=== PATIENT | female | born 1980 | race Two or more races ===

== ENCOUNTER 2017-10-30 02:54 | Observation (INO) | payer MEDICAID ==
[~2017-10-30] VITALS: Ht 160 cm; Wt 78.0 kg
[2017-10-30] MEDS ORDERED: FERR325T6 PO (03:32)
[2017-10-30] MEDS ORDERED: PREN1TAB45 PO (03:32)
== END 2017-10-30 04:15 | disposition home or self-care (01) ==
LOC: L&D 02:54
PROVIDERS: ADMIT Obstetrics & Gynecology; ATTEND Obstetrics & Gynecology
DX: O36.8130 Decreased fetal movements, third trimester, not applicable or unspecified (principal); Z3A.37 37 weeks gestation of pregnancy
CPT/HCPCS: 99281; G0378

== ENCOUNTER 2017-11-14 20:06 | Observation (INO) | payer MEDICAID ==
[~2017-11-14 20:06] MED LIST: FERR325T6 PO; PREN1TAB45 PO
== END 2017-11-14 23:00 | disposition home or self-care (01) ==
LOC: L&D 20:06
PROVIDERS: ADMIT Obstetrics & Gynecology; ATTEND Obstetrics & Gynecology
DX: O42.92 Full-term premature rupture of membranes, unspecified as to length of time between rupture and onset of labor (principal); Z3A.39 39 weeks gestation of pregnancy
CPT/HCPCS: 99281; G0378